=== PATIENT | male | born 2000 | race African-American/Black ===

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

== ENCOUNTER 2023-12-15 00:11 | Emergency (ER) | payer SELFPAY ==
[~2023-12-15] VITALS: Ht 172.7 cm; Wt 70.0 kg
[2023-12-15] MEDS: ONDANSETRON HCL 4MG/2ML INJ IV ONE (01:05)
[2023-12-15] MEDS: MORPHINE SULFATE 4 MG/ML INJ (FOR IV/IM USE) IV ONE ×2 (01:06→01:33)
[2023-12-15 01:41] VITALS: O2SAT 100
[2023-12-15] MEDS: SODIUM CHLORIDE 0.9% 1,000 ML IV ONE (02:00)
[2023-12-15] MEDS: PROPOFOL 200MG/20ML VIAL IV ONE (02:27)
[2023-12-15 03:00] VITALS: TEMP 97.9
[2023-12-15] MEDS ORDERED: BACL-141 MT (03:40)
[2023-12-15] MEDS ORDERED: NAPR275T96 MT (03:40)
[2023-12-15 05:35] VITALS: BP 125/71; PULSE 85; RESP 18
== END 2023-12-15 05:38 | disposition home or self-care (01) ==
LOC: ER 00:28
DX: S43.004A Unspecified dislocation of right shoulder joint, initial encounter (principal); F12.10 Cannabis abuse, uncomplicated; W18.30XA Fall on same level, unspecified, initial encounter; Y93.89 Activity, other specified; Y92.89 Other specified places as the place of occurrence of the external cause; Y99.8 Other external cause status
CPT/HCPCS: 73030; 23650; 96361; 96374; 96375; 99152; 99285; J2405; J2704; J2270; J7030; Z7610 ×3